=== PATIENT | male | born 1985 | race Caucasian/White ===

== ENCOUNTER 2021-03-27 09:47 | Outpatient (CLI) | payer OTHER ==
--- NOTE | 2021-03-27 11:40 | XRay Report ---
CHEST 2 VIEWS INDICATION: TO RULE OUT ACTIVE TB INFECTION. COMPARISON: None FINDINGS: SUPPORT DEVICES: None. HEART: Within normal limits. LUNGS/PLEURA: No acute air space or interstitial disease. No evidence of active tuberculosis on this exam. No pneumothorax. ADDITIONAL FINDINGS: None. IMPRESSION: 1. No acute findings. Signer Name: Bennie Blunt MD Signed: 03/27/2021 11:35 AM Workstation Name: [id number]
== END 2021-03-27 09:48 | disposition home or self-care (01) ==
LOC: XRAY 09:47
PROVIDERS: ATTEND Internal Medicine
DX: Z11.1 Encounter for screening for respiratory tuberculosis (principal)
CPT/HCPCS: 71046